=== PATIENT | male | born 1970 | race Hispanic/Latino ===

== ENCOUNTER 2016-12-22 10:19 | Emergency (ER) | payer MEDICAID ==
[2016-12-22 11:00] VITALS: BMI 25.0
[2016-12-22] MEDS ORDERED: Ampicillin/Sulbactam 3 GM in Sodium Chloride 0.9% 100 ML IVPB STA (11:19)
--- NOTE | 2016-12-22 11:24 | ED PDOC ---
Arrival/HPI - General Chief Complaint: Lower Extremity Problem/Injury Time Seen by Provider: 12/22/16 10:41 Historian: Patient - History of Present Illness Narrative History of Present Illness (Text): 12/22/16 11:21 46 y.o. male whose PMHx includes IVDA, Hep C, and COPD who comes to the ED with complaint of L foot pain and swelling. He says he lanced a blister on the bottom of his L big toe yesterday using a utility knife (that he says he cleansed with alcohol), and today woke up with L foot swelling. He has also had a scaly rash on the foot that he has been itching. He denies any fever injecting drugs into his foot. He has COPD at baseline with a chronic cough but denies any changes in his chronic SOB. No abd pain or n/v. Past Medical History - Past History Past History: No Previous - Infectious Disease Hx of Infectious Diseases: None - Tetanus Immunization Tetanus Immunization: Unknown - Cardiac Hx Cardiac Disorders: No - Pulmonary Hx Respiratory Disorders: Yes Hx Bronchitis: Yes Hx Chronic Obstructive Pulmonary Disease (COPD): Yes - Neurological Hx Neurological Disorder: No - HEENT Hx HEENT Disorder: No - Renal Hx Renal Disorder: No - Endocrine/Metabolic Hx Endocrine Disorders: No - Hematological/Oncological Hx Blood Disorders: Yes Hx Hepatitis C: Yes - Integumentary Hx Dermatological Disorder: No - Musculoskeletal/Rheumatological Hx Musculoskeletal Disorders: No Hx Falls: No - Gastrointestinal Hx Gastrointestinal Disorders: No - Genitourinary/Gynecological Hx Genitourinary Disorders: No - Psychiatric Hx Psychophysiologic Disorder: No Hx Substance Use: Yes (heroin/cocaine, inh) - Past Surgical History Past Surgical History: No Previous - Surgical History Other/Comment: 2 inguinal hernias - Anesthesia Hx Anesthesia: Yes Hx Anesthesia Reactions: No Hx Malignant Hyperthermia: No - Suicidal Assessment Feels Threatened In Home Enviroment: No Family/Social History Family/Social History: No Known Family HX Smoking Status: Current Some Days Smoker Hx Alcohol Use: Yes (former) Hx Substance Use: Yes (heroin/cocaine, inh) Hx Substance Use Treatment: Yes (has just returned from rehab) Allergies/Home Meds Allergies/Adverse Reactions: Allergies No Known Allergies Allergy (Verified 12/22/16 10:59) Review of Systems - Review of Systems Constitutional: absent: Fevers ENT: Normal Respiratory: Cough. absent: SOB (no changes) Cardiovascular: absent: Chest Pain Gastrointestinal: absent: Abdominal Pain, Nausea, Vomiting Genitourinary Male: absent: Dysuria Skin: Rash (on dorsum of L foot) Neurological: absent: Focal Weakness Endocrine: absent: Diaphoresis, Polyuria, Polydipsia Physical Exam Vital Signs Temp Pulse Resp BP Pulse Ox 12/22/16 12:10 86 18 141/69 99 12/22/16 11:04 98.2 F 94 H 18 145/74 98 Temperature: Afebrile Blood Pressure: Normal Pulse: Regular Respiratory Rate: Normal Appearance: Positive for: Well-Appearing, Non-Toxic, Comfortable Pain Distress: None Mental Status: Positive for: Alert and Oriented X 3 - Systems Exam Head: Present: Atraumatic, Normocephalic Pupils: Present: PERRL, Other (2-3 mm b/L (admits taking percocet this morning)) Conjunctiva: Present: Normal Mouth: Present: Moist Mucous Membranes Pharnyx: Present: Normal. No: ERYTHEMA, EXUDATE Neck: Present: Normal Range of Motion Respiratory/Chest: Present: Wheezes. No: Respiratory Distress, Accessory Muscle Use Cardiovascular: Present: Regular Rate and Rhythm, Normal S1, S2. No: Murmurs Abdomen: Present: Normal Bowel Sounds. No: Tenderness, Distention, Peritoneal Signs Back: Present: Normal Inspection Upper Extremity: Present: Normal Inspection. No: Cyanosis, Edema Lower Extremity: Present: Other (L foot dorsum with scaly rash (about 5 x 6 cm) , mild swelling with erythema extending more proximally an additional 3 cm and tenderness; normal DP pulse). No: Edema Neurological: Present: GCS=15, CN II-XII Intact, Speech Normal Skin: Present: Warm, Dry, Normal Color. No: Rashes Psychiatric: Present: Alert, Oriented x 3, Normal Insight, Normal Concentration Medical Decision Making ED Course and Treatment: 12/22/16 11:25 Patient with L foot infection with history of IVDA - will obtain labs and start IV antibiotics and reassess. 12/22/16 12:45 Chest X-ray: Creator : Humphrey Saucedo MD COMPARISON: No prior. FINDINGS: LUNGS: No active pulmonary disease. PLEURA: No significant pleural effusion identified. No pneumothorax apparent. CARDIOVASCULAR: Normal. OSSEOUS STRUCTURES: No significant abnormalities. VISUALIZED UPPER ABDOMEN: Normal. OTHER FINDINGS: None. IMPRESSION: No active disease. Left Foot X-ray: Creator : Humphrey Saucedo MD COMPARISON: None. FINDINGS: BONES: Normal. No fracture. JOINTS: Normal. SOFT TISSUES: Normal. OTHER FINDINGS: None. IMPRESSION: Normal left foot radiographs. 12/22/16 14:51 Patient with scaly rash, possible psoriasis with superimposed cellulitis. Labs are unremarkable. Patient given unasyn and vanco here in the ED with significant improvement of the erythema. Patient with no fever or leukocytosis and is well-appearing with normal vitals. Lungs are CTA b/L s/p one neb. Will d/c on oral antibiotics, topical steroid cream and have him come back in two days for re-evaluation of his cellulitis. - Lab Interpretations Lab Results: 12/22/16 11:30 12/22/16 11:30 Lab Results 12/22/16 12:47: Urine Color Yellow, Urine Appearance Clear, Urine pH 6.0, Ur Specific [place] 1.025, Urine Protein Trace H, Urine Glucose (UA) Negative, Urine Ketones Negative, Urine Blood Negative, Urine Nitrate Negative, Urine Bilirubin Negative, Urine Urobilinogen 0.2, Ur Leukocyte Esterase Negative, Urine RBC Negative, Urine WBC 0 - 2, Ur Epithelial Cells None, Amorphous Sediment Trace, Urine Bacteria Mod, Coarse Granular Casts Trace H, Urine Opiates Screen Positive H, Urine Methadone Screen Negative, Ur Barbiturates Screen Negative, Ur Phencyclidine Scrn Negative, Ur Amphetamines Screen Negative , U Benzodiazepines Scrn Positive H, U Oth Cocaine Metabols Negative, U Cannabinoids Screen Negative 12/22/16 11:30: WBC 6.0, RBC 5.34, Hgb 15.1, Hct 44.4, MCV 83.1, MCH 28.3, MCHC 34.0, RDW 13.6, Plt Count 161, MPV 9.6, Gran % 67.0, Lymph % (Auto) 22.4, [place] % (Auto) 7.1 H, Eos % (Auto) 3.3, Baso % (Auto) 0.2, Gran # 4.05, Lymph # 1.4, [place] # 0.4, Eos # 0.2, Baso # 0.01, PT 10.7, INR 0.99, APTT 31.7 H, Sodium 138, Potassium 4.3, Chloride 102, Carbon Dioxide 29, Anion Gap 11, BUN 12, Creatinine 0.8, Est GFR ( Amer) > 60, Est GFR (Non-Af Amer) > 60, Random Glucose 102, Calcium 8.8, Phosphorus 3.0, Magnesium 1.9, Total Bilirubin 0.9, AST 39, ALT 25, Alkaline Phosphatase 61, Total Protein 7.4, Albumin 4.0, Globulin 3.4, Albumin/Globulin Ratio 1.2, Lipase 80 I have reviewed the lab results: Yes - RAD Interpretation Radiology Orders: 12/22/16 11:16 FOOT LEFT 3 VIEWS ROUTINE [RAD] Stat 12/22/16 11:17 CHEST TWO VIEWS (PA/LAT) [RAD] Stat - Medication Orders Current Medication Orders: Discontinued Medications Guaifenesin (Robitussin) 400 mg PO ONCE STA Stop: 12/22/16 11:27 Last Admin: 12/22/16 12:16 Dose: 400 MG Ampicillin Sodium/Sulbactam (Sodium 3 gm/ Sodium Chloride) 100 mls @ 100 mls/ hr IVPB STAT STA PRN Reason: Protocol Stop: 12/22/16 12:18 Last Admin: 12/22/16 12:16 Dose: 100 MLS/HR eMAR Start Stop Document 12/22/16 12:16 SHANELL (Rec: 12/22/16 12:17 SHANELL [id number]) Intravenous Solution Start Date 12/22/16 Start Time 12:16 End Date 12/22/16 End time 13:16 Total Infusion Time 60 Vancomycin HCl 1 gm/ Sodium (Chloride) 250 mls @ 133.333 mls/hr IV STAT STA PRN Reason: Protocol Stop: 12/22/16 13:10 Last Admin: 12/22/16 13:12 Dose: 133.333 MLS/HR eMAR Start Stop Document 12/22/16 13:12 SHANELL (Rec: 12/22/16 13:12 SHANELL [id number]) Intravenous Solution Start Date 12/22/16 Start Time 13:12 End Date 12/22/16 End time 14:50 Total Infusion Time 98 Ipratropium [place] (Atrovent) 0.5 mg IH STAT STA Stop: 12/22/16 11:27 Last Admin: 12/22/16 12:18 Dose: 0.5 MG Levalbuterol HCl (Xopenex) 1.25 mg IH STAT STA Stop: 12/22/16 11:27 Last Admin: 12/22/16 12:15 Dose: 1.25 MG Disposition/Present on Arrival - Present on Arrival Any Indicators Present on Arrival: No History of DVT/PE: No History of Uncontrolled Diabetes: No Urinary Catheter: No History of Decub. Ulcer: No History Surgical Site Infection Following: None - Disposition Have Diagnosis and Disposition been Completed?: Yes Diagnosis: Cellulitis of left foot Disposition: HOME/ ROUTINE Disposition Time: 15:00 Patient Plan: Discharge Condition: GOOD Discharge Instructions (ExitCare): Cellulitis (ED) Additional Instructions: Stop all drug use and keep leg elevated. Apply the cream and take the antibiotics as prescribed. Return to the emergency department or your primary care doctor in two days for re-evaluation. Otherwise return to the emergency department if any new concerning symptoms. Prescriptions: Sulfamethoxazole/Trimethoprim [Bactrim DS 800 mg-160 mg] 2 tab PO BID #40 tab Cephalexin [Keflex] 500 mg PO TID #30 cap Naproxen [Naprosyn] 500 mg PO BID PRN #30 tab PRN Reason: Pain Albuterol HFA [Ventolin HFA 90 mcg/actuation (8 g)] 2 puff IH Q4H #1 inhaler Hydrocortisone [place] 0.2% Cr [Westcort] 1 cre TOP TID #15 gm
[2016-12-22] MEDS ORDERED: Levalbuterol 1.25 MG/3 ML Inhal Soln UD IH STA (11:26)
[2016-12-22] MEDS ORDERED: Ipratropium 0.02% Inhal Soln (0.5 mg/2.5 ml) UD IH STA (11:26)
[2016-12-22] MEDS ORDERED: guaiFENesin 200 mg/10 ml Syrup UD PO STA (11:26)
[2016-12-22 11:42] LABS: ADD MANUAL DIFF? NO
[2016-12-22 11:52] LABS: BASO # 0.01 K/mm3 (0.0-2.0); BASO % 0.2 % (0.0-3.0); EOS # 0.2 (0.0-0.7); EOS % 3.3 % (1.5-5.0); GRAN # 4.05 (1.4-6.5); HEMATOCRIT 44.4 % (42.0-52.0); LYMPH # 1.4 (1.2-3.4); LYMPH % 22.4 % (22.0-35.0); MEAN CELL VOLUME 83.1 fL (80.0-105.0); MEAN CORPUSCULAR HEMOGLOBIN 28.3 pg (25.0-35.0); MEAN PLATELET VOLUME 9.6 fl (7.0-11.0); MONO # 0.4 (0.1-0.6); MONO % 7.1 % (1.0-6.0); PLATELET COUNT 161 10^3/uL (120.0-450.0); RED CELL DISTRIBUTION WIDTH 13.6 % (11.5-14.5)
[2016-12-22 11:57] LABS: ALB/GLOB RATIO 1.2 (1.1-1.8); ALKALINE PHOSPHATASE 61 U/L (38-133); ALT/SGPT 25 U/L (7-56); AST/SGOT 39 U/L (15-59); BILIRUBIN,TOTAL 0.9 mg/dL (0.2-1.3); BLOOD UREA NITROGEN 12 mg/dL (7-21); CALCIUM 8.8 mg/dL (8.4-10.5); CARBON DIOXIDE 29 mmol/L (21-33); CHLORIDE 102 mmol/L (95-110); GFR AFRICAN-AMERICAN > 60; GLUCOSE,RANDOM 102 mg/dL (70-110); LIPASE 80 U/L (23-300); MAGNESIUM 1.9 mg/dL (1.7-2.2); POTASSIUM 4.3 mmol/L (3.6-5.0); SODIUM 138 mmol/L (132-148); TOTAL PROTEIN 7.4 g/dL (5.8-8.3)
[2016-12-22 12:01] LABS: INR 0.99 (0.93-1.08); PARTIAL THROMBOPLASTIN TIME 31.7 Seconds (23.7-30.8)
[2016-12-22 12:17] VITALS: O2SAT 99
--- NOTE | 2016-12-22 12:43 | RAD ---
PROCEDURE: Left Foot Radiographs. HISTORY: L foot infection COMPARISON: None. FINDINGS: BONES: Normal. No fracture. JOINTS: Normal. SOFT TISSUES: Normal. OTHER FINDINGS: None. IMPRESSION: Normal left foot radiographs.
--- NOTE | 2016-12-22 12:43 | RAD ---
HISTORY: cough COMPARISON: No prior. TECHNIQUE: Chest PA and lateral FINDINGS: LUNGS: No active pulmonary disease. PLEURA: No significant pleural effusion identified. No pneumothorax apparent. CARDIOVASCULAR: Normal. OSSEOUS STRUCTURES: No significant abnormalities. VISUALIZED UPPER ABDOMEN: Normal. OTHER FINDINGS: None. IMPRESSION: No active disease.
[2016-12-22 12:53] LABS: URINE BILIRUBIN NEGATIVE (NEGATIVE); URINE BLOOD NEGATIVE (NEGATIVE); URINE GLUCOSE (UA) NEGATIVE (NEGATIVE); URINE KETONE NEGATIVE (NEGATIVE); URINE LEUKOCYTE ESTERASE NEGATIVE Leu/uL (NEGATIVE); URINE PROTEIN TRACE mg/dL (<30 mg/dL); URINE UROBILINOGEN 0.2 E.U./dL (<1 E.U./dL)
[2016-12-22 12:56] LABS: URINE APPEARANCE CLEAR (CLEAR); URINE COLOR YELLOW (YELLOW)
[2016-12-22 13:02] LABS: URINE BACTERIA MOD (NEG); URINE RBC NEGATIVE /hpf (0-2); URINE WBC 0 - 2 /hpf (0-6)
[2016-12-22 13:03] LABS: URINE AMORPHOUS SEDIMENT TRACE
[2016-12-22 15:55] VITALS: BP 129/74; PULSE 80; RESP 20; TEMP 98.1
== END 2016-12-22 15:55 | disposition home or self-care (01) ==
LOC: ED 10:19
DX: L03.116 Cellulitis of left lower limb (principal)
CPT/HCPCS: 71020; 73630; 80053; 80324; 80345; 80346; 80349; 80353; 80358; 80361; 81001; 83690; 83735; 83992; 84100; 85025; 85610; 85730; 87040; 96365; 96366; 96367; 99284; J0295

== ENCOUNTER 2017-02-28 11:48 | Emergency (ER) | payer MEDICAID ==
[2017-02-28 11:51] VITALS: BMI 30.9
[2017-02-28 11:56] VITALS: TEMP 98
--- NOTE | 2017-02-28 12:41 | ED PDOC ---
Arrival/HPI - General Chief Complaint: Lower Extremity Problem/Injury Time Seen by Provider: 02/28/17 11:54 Historian: Patient - History of Present Illness Narrative History of Present Illness (Text): 02/28/17 12:03 A 46 year old male presents to the emergency department complaining of a possible "foot infection." Patient reports every since he was in high school he has suffered from athlete's foot, but back in 12/11 he came to the emergency department for pain and swelling to the left lower extremity for which he was give a few medication for. Patient states the medication seemed to be helping but then about a couple weeks ago when he started to go to work again he developed the redness to the bilateral feet. 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 Patient denies any fever, or other complaints at this time. He mentions he has been trying over the counter medication, which has not brought him any relief. Time/Duration: > week Symptom Onset: Gradual Symptom Course: Unchanged Quality: Other Activities at Onset: Rest Context: Home Past Medical History - Provider Review Nursing Documentation Reviewed: Yes - Past History Past History: No Previous - Infectious Disease Hx of Infectious Diseases: None - Tetanus Immunization Tetanus Immunization: Unknown - Cardiac Hx Cardiac Disorders: No Hx Hypertension: No - Pulmonary Hx Respiratory Disorders: Yes Hx Asthma: Yes Hx Bronchitis: Yes Hx Chronic Obstructive Pulmonary Disease (COPD): Yes Hx Tuberculosis: No - Neurological HX Cerebrovascular Accident: No Hx Seizures: No - HEENT Hx HEENT Disorder: No - Renal Hx Renal Disorder: No - Endocrine/Metabolic Hx Endocrine Disorders: No - Hematological/Oncological Hx Blood Disorders: Yes Hx Hepatitis C: Yes - Integumentary Hx Dermatological Disorder: No - Musculoskeletal/Rheumatological Hx Musculoskeletal Disorders: No Hx Falls: No - Gastrointestinal Hx Gastrointestinal Disorders: No - Genitourinary/Gynecological Hx Sexually Transmitted Diseases: No - Psychiatric Hx Depression: Yes Hx Substance Use: Yes (past user: heroin) Other/Comment: past drug user - Past Surgical History Past Surgical History: No Previous - Surgical History Other/Comment: 2 inguinal hernias - Anesthesia Hx Anesthesia: Yes Hx Anesthesia Reactions: No Hx Malignant Hyperthermia: No - Suicidal Assessment Feels Threatened In Home Enviroment: No Family/Social History - Physician Review Nursing Documentation Reviewed: Yes Family/Social History: Unknown Family HX Smoking Status: Never Smoked Hx Alcohol Use: Yes Hx Substance Use: Yes (past user: heroin) Substance used: "Heroine''; past use of cocaine Hx Substance Use Treatment: Yes (has just returned from rehab) Allergies/Home Meds Allergies/Adverse Reactions: Allergies No Known Allergies Allergy (Verified 02/28/17 11:51) Review of Systems - Physician Review All systems were reviewed & negative as marked: Yes - Review of Systems Constitutional: absent: Fevers Skin: Rash (bilateral feet) Physical Exam Vital Signs Reviewed: Yes Vital Signs Temp Pulse Resp BP Pulse Ox 02/28/17 11:49 98.0 F 82 19 144/78 99 Temperature: Afebrile Blood Pressure: Normal Pulse: Regular Respiratory Rate: Normal Appearance: Positive for: Well-Appearing, Non-Toxic, Comfortable Pain Distress: None Mental Status: Positive for: Alert and Oriented X 3 - Systems Exam Head: Present: Atraumatic, Normocephalic Pupils: Present: PERRL Extroacular Muscles: Present: EOMI Conjunctiva: Present: Normal Mouth: Present: Moist Mucous Membranes Neck: Present: Normal Range of Motion Upper Extremity: Present: Normal Inspection. No: Cyanosis, Edema Lower Extremity: Present: Erythema (bilateral feet not extending past the ankles (left greater than right)), Temperature Abnormalties (bilateral feet), Neurovascularly Intact, Other (scaly and dry skin to the left foot; moist). No : Tenderness, Swelling Neurological: Present: GCS=15, CN II-XII Intact, Speech Normal Skin: Present: Warm, Dry, Normal Color. No: Rashes Psychiatric: Present: Alert, Oriented x 3, Normal Insight, Normal Concentration Medical Decision Making ED Course and Treatment: 02/28/17 12:03 Impression: A 46 year old male with a erythema to the bilateral feet. Differential Diagnosis include but are not limited to: Fungal infection vs. Cellulutis Plan: -- Labs -- Reassess and disposition Prior Visits: Notes and results from previous visits were reviewed. the emergency department on 12/24/16 requesting detox from heroine and alcohol. Prior to that visit the patient presented to the emergency department on 12/22/16 for evaluation of left foot pain and swelling for which patient was diagnosed with cellulitis and discharged home with Bactrim, Keflex, Naprosyn, albuterol and Hydrocortisone. Progress Notes: 02/28/17 14:13 Patient's CBC is WBC nl. Patient will be treated for a fungal infection and a superimposed cellulitis. He was given instructions on medications and advised to use preventive methods for foot fungal infection. He will f/u with the clinic in 2-3 days. - Lab Interpretations Lab Results: 02/28/17 12:47 02/28/17 12:47 Lab Results 02/28/17 12:47: Sodium 139, Potassium 4.1, Chloride 105, Carbon Dioxide 26, Anion Gap 12, BUN 19, Creatinine 0.8, Est GFR ( Amer) > 60, Est GFR (Non- Af Amer) > 60, Random Glucose 98, Calcium 8.9, Magnesium 1.8 02/28/17 12:47: WBC 6.0, RBC 5.17, Hgb 15.1, Hct 43.7, MCV 84.5, MCH 29.2, MCHC 34.6, RDW 14.2, Plt Count 164, MPV 9.8, Gran % 65.0, Lymph % (Auto) 26.8, [place] % (Auto) 6.2 H, Eos % (Auto) 1.8, Baso % (Auto) 0.2, Gran # 3.90, Lymph # 1.6, [place] # 0.4, Eos # 0.1, Baso # 0.01 I have reviewed the lab results: Yes Interpretation: Abnormal lab values - Medication Orders Current Medication Orders: Discontinued Medications Cephalexin Monohydrate (Keflex) 500 mg PO STAT STA PRN Reason: Protocol Stop: 02/28/17 14:03 Trimethoprim/Sulfamethoxazole (Bactrim Ds Tab) 2 tab PO STAT STA PRN Reason: Protocol Stop: 02/28/17 14:03 - Scribe Statement The provider has reviewed the documentation as recorded by the Randallibe Zack Merritt Provider Scribe Attestation: All medical record entries made by the Scribe were at my direction and personally dictated by me. I have reviewed the chart and agree that the record accurately reflects my personal performance of the history, physical exam, medical decision making, and the department course for this patient. I have also personally directed, reviewed, and agree with the discharge instructions and disposition. Disposition/Present on Arrival - Present on Arrival Any Indicators Present on Arrival: No History of DVT/PE: No History of Uncontrolled Diabetes: No Urinary Catheter: No History of Decub. Ulcer: No History Surgical Site Infection Following: None - Disposition Have Diagnosis and Disposition been Completed?: Yes Diagnosis: Cellulitis, Tinea pedis Disposition: HOME/ ROUTINE Disposition Time: 14:15 Patient Plan: Discharge Patient Problems: Current Active Problems Problem Status Onset Cellulitis Acute Tinea pedis Acute Condition: GOOD Discharge Instructions (ExitCare): Cellulitis (ED) Additional Instructions: Mr. Castaneda thank you for letting us take care of you today. Your provider was Dr. Tapia. You were treated for Cellulitis, Tinea Pedis. The emergency medical care you received today was directed at your acute symptoms. If you were prescribed any medication, please fill it and take as directed. It may take several days for your symptoms to resolve. Return to the Emergency Department if your symptoms worsen, do not improve, or if you have any other problems. Please contact your doctor or call one of the physicians/clinics you have been referred to that are listed on the Patient Visit Information form that is included in your discharge packet. Bring any paperwork you were given at discharge with you along with any medications you are taking to your follow up visit. Our treatment cannot replace ongoing medical care by a primary care provider (PCP) outside of the emergency department. [facility] today. If you had an X-Ray or CT scan: A Radiologist will review the ED reading if any change in treatment is needed we will contact you. If you had a blood, urine, or wound culture: It will take several days for the results, if any change in treatment is needed we will contact you. If you had an STI test: It will take 48 hours for the results. Please call after 1 week if you have not heard back. Prescriptions: Cephalexin [Keflex] 500 mg PO TID #30 capsule Clotrimazole 1% Cream [Lotrimin 1%] 1 cre TP TID #1 tube Hydrocortisone [place] 0.2% Cr [Westcort] 1 cre TP TID #1 tube Naproxen 500 mg PO BID PRN #30 tab PRN Reason: Pain, Moderate (4-7) Sulfamethoxazole/Trimethoprim [Bactrim DS 800 mg-160 mg] 2 tab PO Q12 #40 tab Referrals: at [facility] [place] [Outside] - Follow up with primary Forms: WORK NOTE
[2017-02-28 12:48] LABS: ADD MANUAL DIFF? NO
[2017-02-28 12:58] LABS: BASO # 0.01 K/mm3 (0.0-2.0); BASO % 0.2 % (0.0-3.0); EOS # 0.1 (0.0-0.7); EOS % 1.8 % (1.5-5.0); HEMATOCRIT 43.7 % (42.0-52.0); LYMPH # 1.6 (1.2-3.4); LYMPH % 26.8 % (22.0-35.0); MEAN CELL VOLUME 84.5 fL (80.0-105.0); MEAN CORPUSCULAR HEMOGLOBIN 29.2 pg (25.0-35.0); MEAN CORPUSCULAR HGB CONC 34.6 g/dl (31.0-37.0); MEAN PLATELET VOLUME 9.8 fl (7.0-11.0); MONO # 0.4 (0.1-0.6); MONO % 6.2 % (1.0-6.0); PLATELET COUNT 164 10^3/uL (120.0-450.0); RED CELL DISTRIBUTION WIDTH 14.2 % (11.5-14.5)
[2017-02-28 13:02] LABS: BLOOD UREA NITROGEN 19 mg/dL (7-21); CALCIUM 8.9 mg/dL (8.4-10.5); CARBON DIOXIDE 26 mmol/L (21-33); CHLORIDE 105 mmol/L (98-107); GFR AFRICAN-AMERICAN > 60; GLUCOSE,RANDOM 98 mg/dL (70-110); MAGNESIUM 1.8 mg/dL (1.7-2.2); POTASSIUM 4.1 mmol/L (3.6-5.0); SODIUM 139 mmol/L (132-148)
[2017-02-28] MEDS ORDERED: Tmp-Smz 800 mg-160 mg DS Tab PO STA (14:02)
[2017-02-28 14:22] VITALS: BP 130/90; PULSE 72; RESP 18; O2SAT 100
== END 2017-02-28 14:27 | disposition home or self-care (01) ==
LOC: ED 11:48
DX: L03.116 Cellulitis of left lower limb (principal); L03.115 Cellulitis of right lower limb; B35.3 Tinea pedis

== ENCOUNTER 2017-04-03 10:03 | Emergency (ER) | payer MEDICAID ==
[2017-04-03 10:04] VITALS: BMI 30.9
[2017-04-03 10:10] VITALS: BP 159/97; PULSE 88; RESP 20; TEMP 98; O2SAT 98
== END 2017-04-03 10:04 | disposition left against medical advice (07) ==
LOC: ED 10:03
DX: Z02.89 Encounter for other administrative examinations (principal); Z03.89 Encounter for observation for other suspected diseases and conditions ruled out

== ENCOUNTER 2017-04-16 09:33 | Emergency (ER) | payer MEDICAID ==
[2017-04-16 09:35] VITALS: BMI 30.9
[2017-04-16 09:42] VITALS: BP 138/78; PULSE 85; RESP 16; TEMP 97.8; O2SAT 98
== END 2017-04-16 11:08 | disposition left against medical advice (07) ==
LOC: ED 09:33
DX: Z02.89 Encounter for other administrative examinations (principal); R53.1 Weakness